=== PATIENT | male | born 1970 | race Two or more races ===

== ENCOUNTER 2019-10-14 21:10 | Inpatient (IN) | payer MEDICARE, OTHER ==
[~2019-10-14] VITALS: Ht 172.7 cm; Wt 70.8 kg
--- NOTE | 2019-10-14 21:15 | NUR ---
pt [facility], pt is visiting form [place], hasmissed 2 or more dialysis per paramedics. in er, pt reluctant to communicate, non-cooperative.
[2019-10-14] MEDS ORDERED: LIDOCAINE 2% (UROJET) 10 ML JELLY MM ONE ×2 (21:30→21:36)
--- NOTE | 2019-10-14 21:40 | NUR ---
pt states that he does not make any urine
[2019-10-14 21:56] LABS: BASOPHILS % (AUTO) 0.2 % (0.0-2.0); EOSINOPHILS # (AUTO) 0.1 K/uL (0.0-0.7); EOSINOPHILS % (AUTO) 0.6 % (0.0-7.0); HEMATOCRIT 39.4 % (36.7-47.1); HEMOGLOBIN 12.5 g/dL (12.5-16.3); LYMPHOCYTES # (AUTO) 0.6 K/uL (20.0-40.0); LYMPHOCYTES % (AUTO) 5.9 % (20.5-51.5); MEAN CORPUSCULAR HEMOGLOBIN 28.1 uug (23.8-33.4); MEAN CORPUSCULAR HGB CONC 32 g/dL (32.5-36.3); MEAN CORPUSCULAR VOLUME 88.3 fL (73.0-96.2); MONOCYTES # (AUTO) 0.7 K/uL (2.0-10.0); MONOCYTES % (AUTO) 7.5 % (0.0-11.0); NEUTROPHILS # (AUTO) 8.3 K/uL (1.8-8.9); NEUTROPHILS % (AUTO) 85.8 % (38.5-71.5); PLATELET COUNT (AUTO) 219 K/uL (152-348); RED BLOOD CELL COUNT(AUTO) 4.47 MIL/uL (4.06-5.63); WHITE BLOOD COUNT (AUTO) 9.6 K/uL (3.6-10.2)
[2019-10-14 22:42] LABS: ALANINE AMINOTRANSFERASE 26 U/L (16-63); ALKALINE PHOSPHATASE 162 U/L (50-136); ASPARTATE AMINOTRANSFERASE 33 U/L (15-37); BILIRUBIN,DIRECT 0.6 mg/dL (0.0-0.2); BILIRUBIN,TOTAL 1.5 mg/dL (0.2-1.0); CARBON DIOXIDE 24 mmol/L (21-32); CHLORIDE 95 mmol/L (98-107); GLUCOSE 195 mg/dL (74-106); TOTAL PROTEIN, SERUM 8.5 g/dL (6.4-8.2); UREA NITROGEN, BLOOD 76 mg/dL (7-18)
--- NOTE | 2019-10-14 22:42 | NUR ---
pt mother at bedside. pt mother states that pt has been non-compliant with his medical care, does not take his meds and refuses to go to dialysis.
[2019-10-14 22:44] LABS: ACETAMINOPHEN < 10.0 ug/mL (10-30); CREATININE 8.7 mg/dL (0.6-1.3); POTASSIUM 7.9 mmol/L (3.5-5.1)
[2019-10-14] MEDS ORDERED: FUROSEMIDE 20 MG/2 ML VIAL IVP ONE (22:45)
[2019-10-14] MEDS ORDERED: DEXTROSE 50% 50 ML DISP.SYRIN IV ONE (22:45)
[2019-10-14] MEDS ORDERED: INSULIN REGULAR, HUMAN 300 UNIT/3 ML VIAL IV ONE (22:45)
[2019-10-14] MEDS ORDERED: SODIUM BICARBONATE 8.4% 50 MEQ/50 ML DISP.SYRIN IV ONE ×2 (22:45→22:57)
[2019-10-14] MEDS ORDERED: SODIUM POLYSTYRENE SULFONATE 15 G/60 ML LIQUID UDC PO ONE (22:45)
[2019-10-14] MEDS ORDERED: ALBUTEROL SULFATE 2.5 MG/3 ML NEBU NEB ONE (22:45)
[2019-10-14] MEDS ORDERED: ALBUTEROL SULFATE 2.5 MG/3 ML NEBU ONE (22:52)
--- NOTE | 2019-10-14 22:52 | NUR ---
called rhonda bob and gave the info
[2019-10-14] MEDS ORDERED: DEXTROSE 50% 50 ML DISP.SYRIN ONE (22:56)
[2019-10-14] MEDS ORDERED: FUROSEMIDE 20 MG/2 ML VIAL ONE (22:56)
[2019-10-14] MEDS ORDERED: SODIUM POLYSTYRENE SULF POWDER 15 GM UDC ONE (22:56)
[2019-10-14 22:57] LABS: ETHANOL < 3 MG/DL (0-0)
[2019-10-14] MEDS ORDERED: INSULIN REGULAR, HUMAN 300 UNIT/3 ML VIAL ONE (22:57)
--- NOTE | 2019-10-14 23:00 | NUR ---
pt removed the heplock. notified. pt very hard stick. ordered to push the meds through perma cath.
[2019-10-14 23:04] LABS: MAGNESIUM 2.3 mg/dL (1.8-2.4)
[2019-10-14 23:05] LABS: THYROID STIMULATING HORMONE 3.792 mIU/mL (0.358-3.740)
--- NOTE | 2019-10-14 23:10 | NUR ---
DR ERICK OLSON CALLED LEFT MESSAGE WAITING FOR CALLBACK
--- NOTE | 2019-10-14 23:11 | NUR ---
DR SUAREZ ANALYST [employer] SPEAKING WITH DR MELGAR.
[2019-10-14] MEDS ORDERED: LORAZEPAM 2 MG/1 ML VIAL ONE (23:15)
[2019-10-14 23:33] LABS: PHOSPHOROUS 9.6 mg/dL (2.5-4.9)
[2019-10-14] MEDS ORDERED: LORAZEPAM 2 MG/1 ML VIAL IV ONE (23:45)
--- NOTE | 2019-10-15 00:05 | NUR ---
Admitted a 48 years old male with diagnosis of Hyperkalemia and AMS. Patient alert to name only. Does not answer most of the question. Confused and withdrawn. In no acute distress. NSR on tele at 85min. Dialysis site on both upper arm. Perma cath on right anterior chest wall intact. Multiple scabs on right UE and left hand noted. Skin intact, dry and warm to touch. Routine admission care done. Plan of care initiated. Safety measure initiated and call sierar within reached. Continue to monitor.
--- NOTE | 2019-10-15 00:10 | NUR ---
Transfer to 3rd floor via [facility].
[2019-10-15 00:23] VITALS: BP 145/85
[2019-10-15] MEDS ORDERED: MAGNESIUM HYDROXIDE 30 ML LIQUID UDC PO PRN (00:30)
[2019-10-15] MEDS ORDERED: ACETAMINOPHEN 325 MG TABLET PO PRN (00:30)
[2019-10-15] MEDS ORDERED: ZOLPIDEM 5 MG TABLET PO PRN (00:30)
[2019-10-15] MEDS ORDERED: ONDANSETRON 4 MG/2 ML VIAL IV PRN (00:30)
[2019-10-15] MEDS ORDERED: Z GUARD REMEDY PASTE 57 GM TUBE TOP PRN (00:30)
[2019-10-15] MEDS ORDERED: HYDROCODONE/APAP 5-325MG TABLET PO PRN (00:30)
--- NOTE | 2019-10-15 01:30 | NUR ---
Started IV line on right upper arm #22G.
--- NOTE | 2019-10-15 02:13 | NUR ---
JIRA DEVELOPER AT BEDSIDE.
[2019-10-15 04:00] VITALS: BP 135/78
--- NOTE | 2019-10-15 04:00 | NUR ---
Dialysis done with 2L out.
--- NOTE | 2019-10-15 05:00 | NUR ---
IV line on right upper arm dislodge. New IV site on right FA #20G.
--- NOTE | 2019-10-15 06:38 | NUR ---
Patient weak, lethargic and confused. In no acute distress. NSR on tele at 66/min. Perma cath on right anterior chest wall dressing change by sound technician and intact. IV site on right FA intact and patent. Safety measure maintained and call sierra within reached.
[2019-10-15 06:55] LABS: CREATININE 6.6 mg/dL (0.6-1.3); POTASSIUM 5.4 mmol/L (3.5-5.1)
[2019-10-15 08:30] VITALS: BP 179/42
[2019-10-15 11:51] VITALS: BP 160/52
[2019-10-15] MEDS ORDERED: CLONIDINE-TTS 1 PATCH TD SCH ×2 (12:45→15:00)
--- NOTE | 2019-10-15 12:50 | NUR ---
refusing clonidine patch at this time
--- NOTE | 2019-10-15 13:03 | NUR ---
WOUND CARE CONSULT: PT UNCOOPERATIVE AT THIS TIME AND REFUSED SKIN ASSESSMENT. CURRENT [employer] SCORE IS 21. WILL SEE PRN.
--- NOTE | 2019-10-15 13:30 | NUR ---
Patient refusing to sign belongings list in preparedness for dcd to [facility].
[2019-10-15] MEDS ORDERED: ACET325T53 PO (14:26)
[2019-10-15] MEDS ORDERED: ALBU2.5V38 NEB (14:26)
[2019-10-15] MEDS ORDERED: ASPI-618 PO (14:26)
[2019-10-15] MEDS ORDERED: ONDA4VIA23 IV (14:26)
[2019-10-15] MEDS ORDERED: CLON0.1T PO (14:30)
[2019-10-15] MEDS ORDERED: CLON1PAT TD (14:38)
[2019-10-15 15:16] VITALS: BP 148/96
--- NOTE | 2019-10-15 17:42 | NUR ---
A call from [facility] and case management Shabbir stated that patient will be going to room 4061 with admitting physician [address] Dr. Americo Mackey and call report to .
--- NOTE | 2019-10-15 18:29 | NUR ---
Telephone report given to Miguel Jung reported vitals: 119/83 97.7, temp, rr 16, 0/10 pain, 98% on room air. Latest lab results reported as requested.
--- NOTE | 2019-10-15 18:36 | NUR ---
All dcd documentation and CD filming in dcd package. Patient awaiting to be pick-up by medical transfer.
--- NOTE | 2019-10-15 18:38 | NUR ---
Patient off telemetry monitoring and refusing to wear it back on.
--- NOTE | 2019-10-15 19:26 | NUR ---
Received patient lying in bed, asleep but arouse to tactile stimuli. Alert to self only. In no acute distress. No signs or symptoms of pain or SOB. Perm a cath on right anterior chest wall intact. Awaiting to be transfer to [place]. Continue to monitor.
[2019-10-15 19:55] VITALS: BP 196/96
== END 2019-10-15 20:13 | disposition short-term general hospital (02) | DRG 291 ==
LOC: ER 21:18 → TELE-TD3 23:32 → MEDSURG3 10-15 13:01 → TELE3 10-15 13:07
PROVIDERS: ADMIT Student in an Organized Health Care Education/Training Program; ATTEND Internal Medicine
PROC: 5A1D70Z Performance of Urinary Filtration, Intermittent, Less than 6 Hours Per Day (ICD-10-PCS; principal; 2019-10-15)
DX: I13.2 Hypertensive heart and chronic kidney disease with heart failure and with stage 5 chronic kidney disease, or end stage renal disease (principal); G92 Toxic encephalopathy; N18.6 End stage renal disease; E87.5 Hyperkalemia; R41.0 Disorientation, unspecified; Z99.2 Dependence on renal dialysis; Z91.15 Patient's noncompliance with renal dialysis; I50.9 Heart failure, unspecified; Z86.73 Personal history of transient ischemic attack (TIA), and cerebral infarction without residual deficits; I44.0 Atrioventricular block, first degree; E83.52 Hypercalcemia; E83.39 Other disorders of phosphorus metabolism; R79.89 Other specified abnormal findings of blood chemistry; R73.9 Hyperglycemia, unspecified
CPT/HCPCS: 36415; 70030-TC; 70450; 71045; 83735; 84100; 84443; 85025; 85730; 90937; 93005; A4663; G0378; G0480; G0480-TC; J1815; J1940; J2060; J3490